=== PATIENT | male | born 1955 | race African-American/Black ===

== ENCOUNTER 2020-11-30 21:34 | Emergency (ER) | payer MEDICARE ==
[~2020-11-30] VITALS: Ht 190.5 cm; Wt 113.4 kg
[2020-12-01] MEDS ORDERED: POTASSIUM CHLORIDE 10MEQ EA PO ONE (00:15)
[2020-12-01] MEDS ORDERED: K DUR10 MEQ PO (00:18)
[2020-12-01] MEDS ORDERED: POTASSIUM CHLORIDE 20 MEQ TAB CR PO ONE (00:22)
[2020-12-01 00:31] VITALS: BP 170/101
== END 2020-12-01 00:31 | disposition home or self-care (01) ==
LOC: FSED 12-01 00:01
DX: R53.1 Weakness (principal); E87.6 Hypokalemia; D64.9 Anemia, unspecified; I10 Essential (primary) hypertension; N28.9 Disorder of kidney and ureter, unspecified; R53.83 Other fatigue; Z86.79 Personal history of other diseases of the circulatory system
CPT/HCPCS: 71046; 80053; 81003; 82553; 83880; 84484; 85025; 93005; 99284